=== PATIENT | female | born 1955 | race Caucasian/White ===

== ENCOUNTER 2016-12-22 17:18 | Observation (INO) | payer OTHER ==
[~2016-12-22] VITALS: Ht 154.9 cm; Wt 51.3 kg
[2016-12-22 17:21] VITALS: BP 173/97; PULSE 94; RESP 18; O2SAT 98
[2016-12-22 17:46] LABS: BASOPHILS % (AUTO) 0.5 % (0-3); EOSINOPHILS % (AUTO) 1.2 % (0-5); MONOCYTES % (AUTO) 9.4 % (4-12); Mean Corpuscular Hemoglobin 33.7 pg (27.0-35.0); Mean Corpuscular Volume 100.7 fL (81-100); NEUTROPHILS % (AUTO) 63.4 % (40-74); Platelet Count 347 bil/L (150-400)
--- NOTE | 2016-12-22 19:56 | ED.REPORT ---
HPI-General Illness Date of Service Dec 22, 2016 ED Provider: Jerzy Rivas MD A 61 year old female with a history of recent RLE DVT on Xeralto (15mg bid) presents to the ED with vaginal bleeding that initially began 3 weeks ago but became worse this afternoon. Patient went to the bathroom and noticed bright red blood dripping onto the paper. She also reports experiencing hematuria but the source of her bleeding is unknown. Recent associated symptoms also include diarrhea, hematochezia, hyperactive bowel sounds and tarry stool. Patient recently finished a full course of cefdinir for a positive strep test. She denies any recent vision changes, headaches, fever, chills, incontinence, changes in fluid intake/appetite or abdominal pain. Nursing Notes Stated Complaint: VAGINAL BLEEDING Chief Complaint: General Complaint Nursing Notes Reviewed: Yes Allergies: Coded Allergies: No Known Allergies (Unverified , 12/22/16) Miscellaneous Medications Albuterol HFA (Proair HFA) 8.5 Gm Hfa.aer.ad Cefdinir (Cefdinir) 300 Mg Capsule Celecoxib (Celecoxib) 200 Mg Capsule Citalopram (Citalopram) 10 Mg Tablet Duloxetine (Duloxetine) 30 Mg Capsule. Escitalopram Oxalate (Escitalopram Oxalate) 10 Mg Tablet Etonogestrel/Ethinyl Estradiol (Nuvaring Vaginal Ring) 1 Each Vag.ring Fluticasone Propionate (Fluticasone Propionate Nasal) 16 Gm [place].susp Lidocaine (Lidocaine) 700 Mg Adh..patch Methylprednisolone (MethylprednisoLONE Dose [place]) 4 Mg Tab.ds.pk Rivaroxaban (Xarelto) 15 Mg Tablet Rivaroxaban (Xarelto) 20 Mg Tablet Valacyclovir (Valacyclovir) 1,000 Mg Tablet General Time Seen by MD: 19:51 Chief Complaint Other (Hematuria) Hx Obtained From: Patient Arrived By: Walk-in Sudden in Onset?: No Onset Occurred: More than a week ago... (3 weeks) Symptom Duration: Since onset Associated with: Denies: Abdominal pain, Headache, Vision change Pertinent Negative: Pt denies other symptoms Recent Healthcare: Recent doctor visit, Recent hospitalization Past Medical History Past Medical History RLE DVT "Hyperactive airways" Past Surgical History Hernia repair Appendectomy Knee Arthroscopy Smoking History Never Smoker Social History Alcohol Use: "Social" Drug Use: Denies drug use Other Social History: Good social support, , Local resident Ambulatory Status Independent Review of Systems hyperactive bowel sounds Full Review of Systems Constitutional: Denies: Chills, Fever GI: Reports: Bloody/tarry stool, Diarrhea, Hematochezia, Denies: Abdominal pain Female: Reports: Hematuria, Denies: Incontinence, Vaginal bleeding - abnl Neurologic: Denies: Headache, Vision change Complete sys rev & neg: except as marked. Physical Exam Nursing note and vitals reviewed. Constitutional: Well-developed, well-nourished. Not diaphoretic. Head: Normocephalic and atraumatic. Mouth/Throat: Oropharynx is clear and moist. No oropharyngeal exudate. Eyes: EOM are normal. Pupils are equal, round, and reactive to light. Neck: Supple, no tracheal deviation. Cardiovascular: Normal rate, regular rhythm. Equal and intact distal pulses throughout. Pulmonary/Chest: Effort normal and breath sounds normal. No respiratory distress. Abdominal: Soft. No distension. There is no tenderness, rebound, or guarding. Bowel sounds present; hypermotility present. Pelvic: Large amount of blood in the vaginal vault. No obvious ureteral blood externally. Rectal: Occult heme negative. No external signs of trauma. Musculoskeletal: Range of motion grossly intact, moving all extremities. No edema or tenderness appreciated.Straight leg is negative. Neurological: AOx3. Grossly nonfocal exam. Strength and sensation intact and equal to bilateral upper and lower extremities. Skin: Warm and dry, no rashes or pallor appreciated. Psychiatric: Appropriate mood and affect. Behavior appears normal. Vital Signs Vital Signs Date Time Temp Pulse Resp B/P Pulse Ox O2 Delivery O2 Flow Rate FiO2 12/22/16 20:48 91 19 152/83 98 Room Air 12/22/16 17:21 36.0 94 18 173/97 98 Room Air Interpretation & Diagnostics Lab Results Interpretation Result Diagram: 12/23/16 0153 12/22/16 1738 Test 12/22/16 17:38 12/22/16 21:00 12/22/16 21:25 White Blood Count 8.0th/mm3 (3.8-10.1) Red Blood Count 4.01mil/mm3 (3.90-5.20) Mean Corpuscular Volume 100.7fL (81-100) Mean Corpuscular Hemoglobin 33.7pg (27.0-35.0) Mean Corpuscular Hemoglobin Concent 33.4% (32.0-37.0) Red Cell Distribution Width 12.9% (12.3-15.4) Platelet Count 347bil/L (150-400) Neutrophils (%) (Auto) 63.4% (40-74) Lymphocytes (%) (Auto) 25.4% (14-46) Monocytes (%) (Auto) 9.4% (4-12) Eosinophils (%) (Auto) 1.2% (0-5) Basophils (%) (Auto) 0.5% (0-3) Erythrocyte Sedimentation Rate 4mm/hr (0-40) Prothrombin Time 10.7sec (8.1-12.5) Prothromb Time International Ratio 1.00ratio Activated Partial Thromboplast Time 29.6sec (22.8-33.0) Sodium Level 137mEq/L (134-144) Potassium Level 3.8mEq/L (3.5-5.2) Chloride Level 104mEq/L (97-108) Carbon Dioxide Level 21mmol/L (18-29) Blood Urea Nitrogen 15mg/dL (6-24) Creatinine 0.73mg/dL (0.57-1.00) Estimat Glomerular Filtration Rate 117mL/min (>59) Glucose Level 159mg/dL (60-99) Lactic Acid Level 0.2mmol/L (0.4-2.0) Calcium Level 8.9mg/dL (8.5-10.1) Magnesium Level 1.9mg/dL (1.6-2.6) Total Bilirubin 0.2mg/dL (0.0-1.2) Aspartate Amino Transf (AST/SGOT) 17U/L (0-50) Alanine Aminotransferase (ALT/SGPT) 10U/L (0-32) Alkaline Phosphatase 40U/L (25-165) C-Reactive Protein 0.7mg/dL (0.0-0.5) Total Protein 6.2g/dL (6.4-8.4) Albumin 3.3g/dL (3.4-5.0) Lipase 44U/L (13-60) Urine Color Bloody (YELLOW) Urine Appearance Turbid (CLEAR,HAZY) Urine pH 5.0 (5.0-8.0) Urine Specific [place] 1.020 (1.003-1.035) Urine Protein Tracemg/dL (NEG,TRACE) Urine Glucose (UA) Negativemg/dL (NEGATIVE) Urine Ketones Tracemg/dL (NEGATIVE) Urine Occult Blood Large (NEGATIVE) Urine Nitrite Negative (NEGATIVE) Urine Bilirubin Negative (NEGATIVE) Urine Urobilinogen Normalmg/dL (NORMAL) Urine Leukocyte Esterase Negative (NEGATIVE) Urine RBC Packed/hpf (0-2) Urine WBC 0-5/hpf (0-5) Urine Epithelial Cells Few/hpf (NONE-MOD) Urine Crystals None seen (NONE SEEN) Urine Bacteria Few/hpf (NONE-FEW) Urine Hyaline Casts None/lpf (NONE) Urine Granular Casts None seen (NONE SEEN) Urine Waxy Casts None seen (NONE SEEN) Urine Red Blood Cell Casts None seen (NONE SEEN) Urine White Blood Cell Casts None seen (NONE SEEN) Urine Mucus None seen (None Seen) Urine Trichomonas None seen (NONE SEEN) Urine Yeast None (NONE SEEN) Urinalysis Comment None Urine Culture Reflexed Not indicated Hold Mason Top Tube Received (Received) Re-Eval/Medical Decision Med Decision/Clinical Course In summary, 61-year-old female presenting to the ED for evaluation of large volume vaginal bleeding in the context of recently starting Xarelto for a DVT. Differential is broad and includes GI bleed, endometrial cancer, polyp, etc. She is concerned as she had a hemoglobin today of 13.5 from 15.9 several days ago. CBC otherwise grossly within normal limits. She is having occasional lightheaded episodes, however hemodynamically stable here today. Pelvic exam does demonstrate a large-volume of blood in the vaginal vault; Hemoccult negative. Instructed to hold her evening Xarelto dose. Discussed with MRI SPECIALIST. Plan admission for serial H&H, moderate, ultrasound in the morning, as well as further evaluation and management of her DVT in the setting of active bleeding. Patient agreed with the plan as stated, no further questions. Time of Eval: 23:24 Re-Evaluation/Progress Note: Pt is informed pf pelvic and rectal exam results. Will consult with MRI SPECIALIST Time of Eval: 23:48 Re-Evaluation/Progress Note: Discussed consultation results with the patient. She is offerred admission at this time. Consultation #1: Referral / Consult Name: Ze Jackson MD Call Returned at: 23:47 Cable Strander: Will see patient, Agrees with eval, Agrees with plan Note: MRI SPECIALIST Consultation #2: Referral / Consult Name: Gerda Jara DO Consulted With: Hospitalist Call Returned at: 00:11 Cable Strander: Will see patient, Agrees with eval, Agrees with plan, Accepts admit Counseled Regarding: Diagnosis, Lab results, Need for admission Discharge & Departure Primary Impression: Vaginal bleeding Additional Impression: DVT (deep venous thrombosis) Disposition: ADMITTED TO HOSPITAL Discharge Condition All VS Reviewed: Yes Condition: Improved Referrals: Leslie Blanton MD (PCP) Leeanne Attestation Portions of this note were transcribed by Amparo Cain. I, Dr. Rivas personally performed the history, physical exam and medical decision-making; I reviewed and confirmed the accuracy of the information in the transcribed note. Signed by: Leeanne Baez, 12/22/16 7135. copies to: Leslie Blanton MD, William B MD Dec 22, 2016 19:56 AMPARO CAIN Dec 22, 2016 20:07
[2016-12-22 20:48] VITALS: BP 152/83; PULSE 91; RESP 19; O2SAT 98
[2016-12-22] MEDS ORDERED: 0.9% Sodium Chloride 1,000 ML IV ONE (20:51)
[2016-12-22 21:16] LABS: Magnesium 1.9 mg/dL (1.6-2.6)
[2016-12-22 21:17] LABS: APPEARANCE,URINE TURBID (CLEAR,HAZY); COLOR,URINE BLOODY (YELLOW); OCCULT BLOOD,URINE LARGE (NEGATIVE); UROBILINOGEN,URINE NORMAL (NORMAL)
[2016-12-23] MEDS ORDERED: Polyethylene Glycol (PEG) 17 Gm Powder PO PRN (01:10)
[2016-12-23] MEDS ORDERED: Ondansetron 2 mg/mL 2 mL Inj IVPUSH PRN (01:10)
[2016-12-23] MEDS ORDERED: Alum-Mag Hydrox-Simeth 30 mL Suspension PO PRN (01:10)
--- NOTE | 2016-12-23 01:28 | PCM.HPMED ---
Subjective Date of Service Dec 23, 2016 Primary Provider: Admitting Physician: Gerda Jara DO Primary Care Physician: Leslie Blanton MD Attending Physician: Gerda Jara DO Admit Status: From the Emergency Department Chief Complaint: Vaginal bleeding History of Present Illness: Lety is a 61 yo postmenopausal Female with h/o Recurrent RLE DVT currently on Xarelto and Asthma who presented to the ED for complaints of vaginal bleeding. She reports that she recently went on a family trip to [place] this past weekend, when she noted her RLE was more painful and mildly swollen. She states that it felt similar to a DVT she had in the same spot 5 years ago, so she went to the ED for evaluation. She was found to have a recurrent DVT and was placed on Xarelto, which she reports taking regularly since. She states that she had approximately a 7 hour flight to [place] due to various delays and she was also using the Nuvaring for contraception, but with her recurrent DVT, they placed her on Xarelto and recommended she follow up with a museum attendant. She reports that since being home from that trip on Sunday, she has not noticed any CP, SOB, QUIJANO, vision changes, or swelling of any other extremities. She however, did note blood on her toilet paper as she was wiping today. She did have some mild bleeding 3 weeks ago, which resolved, but with her now being on Xarelto, she decided to go in for further evaluation. In the ED, she was afebrile, but somewhat hypertensive, which she attributes to being nervous. Her CBC and CMP were benign, but it was noted that her Hgb dropped from 15.9 to 13.5 over the past 4 days when comparing her labwork from [place]. A vaginal exam was performed, which showed a large amount of blood pooled in the posterior aspect. She was subsequently told to stop her Xarelto and will be admitted to evaluate to monitor her bleeding. 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 She states that she takes Albuterol and Dulera whenever she has a flare up. She also was recently treated with Cefdinir for a positive strep infection 2 weeks ago. She also has had a chronic diarrhea in the past 3 months, which she just sent stool sample to the lab for analysis. She states she has been having small loose watery BMs up to 10x a day for the past 3 months and has noted that the stool has become more dark and tarry in the past week. She has not noted any BRBPR, and a guaiac test was negative x1 in this ED. She denies any abdominal pain, and she is postmenopausal. She also reports 4 miscarriages in the past and has not had any workup as to why. 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 As far as she knows, there are no clotting or bleeding disorders in the family. Her original DVT episode in 2011 was blamed on a long airplane flight and also using replacement hormone therapy. She has since been on Nuvaring only for contraception. She has had a single partner for the past few years and has no concerns for STIs. Review of Systems: Comprehensive review of systems was conducted with the patient and found to be negative except as noted above in HPI. Allergies Coded Allergies: No Known Allergies (Unverified , 12/22/16) Home Medications From external med history: Xarelto 15 mg twice a day Cefdinir twice a day Valtrex 1 g daily Citalopram 10 mg daily Nuvaring Lidocaine patch Celecoxib 200 mg Duloxetine 30 mg daily Proventil HFA Flonase Patient reports also being on Dulera PMH Asthma and reactive airway disease Depression and anxiety Right leg DVT in 2012 Recurrent right leg DVT in 2017 Patient reports some type of immunodeficiency although she does not remember which immunoglobulin it is Allergies GERD Recent high risk HPV positive Pap smear with subsequent colposcopy genital Herpes Simplex Surgical History Femoral and umbilical hernia repair 3 sections Left knee arthroscopy Colposcopy Appendectomy Family History Family history of lung cancer Social History Occupation: former RN Hx Alcohol Use: Yes (wine occasionally) Hx Substance Use: No Hx Tobacco Use: No (but has heavy secondhand exposure from family) Living Arrangement: with Family Exam Vital Signs Vital Sign - Last Date Time Temp Pulse Resp B/P Pulse Ox O2 Delivery O2 Flow Rate FiO2 12/22/16 20:48 91 19 152/83 98 Room Air 12/22/16 17:21 36.0 Exam General: well-developed, well-nourished female who appears in no acute distress HEENT: Normocephalic, atraumatic. External ears without defect. PERRLA, EOMI. Anicteric sclerae, moist conjunctivae, and no lid lag. Oropharynx moist and pink Neck: Supple with full range of motion. No jugular venous distension. No bruits. No lymphadenopathy or thyromegaly. Cardiovascular: Regular rate and rhythm with soft systolic murmur and S3 noted Pulmonary: Clear to auscultation bilaterally with no crackles, wheezes, or rhonchi. Normal respiratory effort with no use of accessory muscles. Abdomen: Bowel tones present. Soft, nontender, nondistended. No hepatosplenomegaly or masses appreciated. Extremities: No clubbing, cyanosis, edema, or lymphadenopathy appreciated. Skin: Normal temperature, turgor, and texture; no rash, ulcers, or subcutaneous nodules appreciated. Neurological: Cranial nerves grossly intact. Normal muscle strength, tone, and bulk. Reflexes, coordination, and sensory function within normal limits. Psychiatric: Appears mildly anxious. Alert and oriented to person, place, and time. Cooperative and pleasant Lab and Diagnostics Result Diagram: 12/22/16 17312/22/16 173 Assessment & Plan Lety is a 61 yo postmenopausal Female with h/o Recurrent RLE DVT currently on Xarelto and Asthma who presented to the ED for complaints of vaginal bleeding. Admitted for evaluation of her vaginal bleeding and evaluation of her recurrent DVTs. Acute Vaginal bleeding, POA Possibly due to abnormal uterine bleeding, but also concerns of malignancy. She has not had any vaginal bleeding since being postmenopausal until now. octave board assembler to be consulted in the AM. Will order Pelvic/TV U/S for further evaluation Will monitor H&H closely due to her drop in H&H since her labs on Sunday, although she is still in the normal range. Type and held. Recurrent DVT, POA Patient's history of miscarriages with recurrent DVTs is suspicious of Antiphospholipid syndrome. Patient denies any fmhx of clotting/bleeding disorders. If her H&H is stable, we will resume her Xarelto immediately and continue to monitor her H&H. Consider museum attendant consultation in the AM Macrocytosis, POA Without anemia. MCV of 100.7 on admission. Patient denies any heavy alcohol use. Will check B12 and Folate Asthma, POA Currently stable. Will continue her home inhalers prn. Her Pulmonary problems and her reports of immunoglobulin deficiency should be elucidated. It may be related to her recurrent DVTs also. She does have gross hematuria on her UA. Consider a cathed specimen to evaluate for true hematuria and possibly nephropathy. Elevated blood pressure, POA Pt reports that she has white coat hypertension. She measures her BP at home frequently and they are generally in the 120 systolic. We will continue to monitor and treat as necessary Elevated blood glucose, POA No history of diabetes, will check an A1c Heart Murmur, POA Soft systolic murmur, which she reports has been present before There appears to be a third heart sound also, which is new to her. Continue monitoring and consider Echocardiogram. No anginal symptoms currently. Anxiety and depression, POA Patient appears mildly anxious on examination. We will continue her home medications: Citalopram and Duloxetine Tylenol as needed for fever/pain Zofran as needed for nausea Bowel regimen as needed for constipation CODE STATUS: Full resuscitation Patient is admitted under inpatient status with expected length of stay greater than 2 midnights due to severity of presenting symptoms, risk of adverse event, and complexity of treatment plan. Pain Evaluation: Adequate Pain Control VTE Prophylaxis: Other (holding prophylaxis until bleeding is evaluated) Resuscitation Status: CPR: Attempt Resuscitation Attending Statement The patient was seen and examined together with house staff on 12/23/2016 and I agree with the history, exam and plan as outlined in the note above. Damon Ko DO Dec 23, 2016 01:27 Gerda Jara DO Dec 23, 2016 04:42
[2016-12-23 01:58] VITALS: BP 150/83; PULSE 75; RESP 18; O2SAT 97
[2016-12-23] MEDS ORDERED: DULO30CA50 (03:20)
[2016-12-23] MEDS ORDERED: FLUT16SP (03:20)
[2016-12-23] MEDS ORDERED: CEFD300C3 (03:20)
[2016-12-23] MEDS ORDERED: LIDO700A33 (03:20)
[2016-12-23] MEDS ORDERED: VALA100026 (03:20)
[2016-12-23] MEDS ORDERED: CITA10TA9 (03:20)
[2016-12-23] MEDS ORDERED: RIVA15TA (03:20)
[2016-12-23] MEDS ORDERED: METH4TAB11 (03:20)
[2016-12-23] MEDS ORDERED: ESCI10TA52 (03:20)
[2016-12-23] MEDS ORDERED: ALBU8.5H2 (03:20)
[2016-12-23] MEDS ORDERED: ETON1VAG (03:20)
[2016-12-23] MEDS ORDERED: CELE-67 (03:20)
[2016-12-23] MEDS ORDERED: RIVA20TA (03:20)
[2016-12-23 05:30] VITALS: BP 127/81; PULSE 85; RESP 16; O2SAT 97
[2016-12-23 06:16] VITALS: PULSE 82
[2016-12-23 06:16] LABS: BASOPHILS % (AUTO) 0.9 % (0-3); EOSINOPHILS % (AUTO) 2.5 % (0-5); MONOCYTES % (AUTO) 11.1 % (4-12); Mean Corpuscular Hemoglobin 34.3 pg (27.0-35.0); Mean Corpuscular Volume 101.6 fL (81-100); NEUTROPHILS % (AUTO) 59.1 % (40-74); Platelet Count 333 bil/L (150-400)
--- NOTE | 2016-12-23 06:25 | NUR ---
Admit Admitted to 3011 from ED via stretcher. Able to ambulate on arrival with strong steady gait and no noted issues with activity. Tele SR w/o c/o CP or discomfort. RA w/o SOB but does report recent upper respiratory tract infection for which she states is resolving. Tolerating PO intake w/o n/v but reports three weeks of diarrhea which she also states has started to resolve over last two days. No excessive bleeding currently noted. Denies pain or discomfort. Personal belongings at bedside per patient request. Oriented to call light use with return demonstration.
[2016-12-23] MEDS ORDERED: Albuterol 2.5 mg/3 mL Inhalation Solution NEB PRN (07:00)
[2016-12-23] MEDS ORDERED: DULoxetine 30 mg DR Capsule PO SCH (08:30)
[2016-12-23 08:40] VITALS: PULSE 86
--- NOTE | 2016-12-23 11:38 | DRSVH ---
PROCEDURE: US PELVIC SONOGRAM + TRANSVAGINAL SONOGRAM INDICATIONS: vag bleeding TECHNIQUE: Real-time scanning was performed of the pelvic organs, with image documentation. Additional endovagi nal scanning was necessary due to incomplete visualization of the adnexal and endometrial structures by transabdominal scanning. COMPARISON: None. FINDINGS: (orthogonal measurements) Uterus size: 5.62 cm, 3.73 cm, 3.58 cm Endometrium thickness: 7.40 mm Right ovary size: 1.49 cm Left ovary size: 1.68 cm Transabdominal scanning: Limited scanning through the kidneys shows no hydronephrosis. There is mode rate amount of pelvic fluid with internal echoes within the cul-de-sac suggesting hematoma. Endovaginal scanning: Uterus: Uterus is normal in size and appearance. Endometrium is mildly thickened for a postmenopaus al woman. Ovaries: Within normal physiologic limits. IMPRESSION: 1. Mild thickening of the endometrium. In a postmenopausal woman, this finding is abnormal. Endometri al sampling may be indicated. 2. A moderate amount of complex free fluid in the cul-de-sac, suspicious for blood. Dictated by: Jaleesa Haywood M.D. on 12/23/2016 at 11:31 Approved by: Jaleesa Hawyood M.D. on 12/23/2016 at 11:36
[2016-12-23 14:03] VITALS: BP 160/84; PULSE 79; RESP 16; O2SAT 98
[2016-12-23] MEDS ORDERED: fentaNYL-PF 50 mCg/mL 2 mL Inj IVPUSH PRN (14:05)
--- NOTE | 2016-12-23 18:25 | PCM.DC.MED ---
Discharge Summary Date of Service Dec 23, 2016 Dates of Hospitalization Date of Hospital Admission Dec 23, 2016 at 00:37 Date of Discharge: Dec 23, 2016 Providers: Admitting Physician: Gerda Jara DO Primary Care Physician: Leslie Blanton MD Attending Physician: Cal Heath DO Diagnosis at Time of Discharge Diagnosis at Time of Discharge #Acute uterine bleeding likely related to multiple factors including withdrawal for hormonal therapy and recent induction on anticoagulation therapy. Consultations OBGYN: Dr Jackson Brief History As per admission HPI by Dr Ko, " Lety is a 61 yo postmenopausal Female with h/o Recurrent RLE DVT currently on Xarelto and Asthma who presented to the ED for complaints of vaginal bleeding. She reports that she recently went on a family trip to [place] this past weekend, when she noted her RLE was more painful and mildly swollen. She states that it felt similar to a DVT she had in the same spot 5 years ago, so she went to the ED for evaluation. She was found to have a recurrent DVT and was placed on Xarelto, which she reports taking regularly since. She states that she had approximately a 7 hour flight to [place] due to various delays and she was also using the Nuvaring for contraception, but with her recurrent DVT, they placed her on Xarelto and recommended she follow up with a roller coaster designer. She reports that since being home from that trip on Sunday, she has not noticed any CP, SOB, QUIJANO, vision changes, or swelling of any other extremities. She however, did note blood on her toilet paper as she was wiping today. She did have some mild bleeding 3 weeks ago, which resolved, but with her now being on Xarelto, she decided to go in for further evaluation. In the ED, she was afebrile, but somewhat hypertensive, which she attributes to being nervous. Her CBC and CMP were benign, but it was noted that her Hgb dropped from 15.9 to 13.5 over the past 4 days when comparing her labwork from [place]. A vaginal exam was performed, which showed a large amount of blood pooled in the posterior aspect. She was subsequently told to stop her Xarelto and will be admitted to evaluate to monitor her bleeding. 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 She states that she takes Albuterol and Dulera whenever she has a flare up. She also was recently treated with Cefdinir for a positive strep infection 2 weeks ago. She also has had a chronic diarrhea in the past 3 months, which she just sent stool sample to the lab for analysis. She states she has been having small loose watery BMs up to 10x a day for the past 3 months and has noted that the stool has become more dark and tarry in the past week. She has not noted any BRBPR, and a guaiac test was negative x1 in this ED. She denies any abdominal pain, and she is postmenopausal. She also reports 4 miscarriages in the past and has not had any workup as to why. 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 As far as she knows, there are no clotting or bleeding disorders in the family. Her original DVT episode in 2011 was blamed on a long airplane flight and also using replacement hormone therapy. She has since been on Nuvaring only for contraception. She has had a single partner for the past few years and has no concerns for STIs." Hospital Course Acute Vaginal bleeding, POA - This case was discussed extensively with both hematology oncology's Dr.Kiarash Henao, in addition to consulted RAIL SIGNAL MECHANIC, Dr Jackson. It was felt patient's acute bleed most likely the result of multiple factors including recent induction on anticoagulation therapy with Xarelto, in addition to withdrawal bleeding from hormonal contraception through patient's NuvaRing. It was additionally pertinent that NuvaRing is an estrogen-containing contraceptive and may have increased patient's chance for recurrent thromboembolus , specifically her recent DVT. Endometrial biopsy was conducted during his hospitalization in response to endometrial thickening observed on pelvic ultrasound. Results are still pending and Dr. Jackson plans to follow-up with patient in office in near future. Bleeding has subsided however and as such Dr. Jackson felt from a gynecologic standpoint she would be stable for discharge home. Truly her hemoglobin and hematocrit was stable throughout hospitalization. Further Dr. Henao did not feel DVT to be an acute issue warranting continued anticoagulation therapy, so patient was discharged without need for continued anticoagulation which may predispose her to recurrent bleeding. See below for further details. Recurrent DVT, POA - Given size and location of DVT , Dr Henao felt this may not intrude represent an acute thromboembolic process but may have been exacerbation of pain from underlying deformity related to previous DVT from 2011 . Furthermore given the location below popliteal region , he felt risk was low enough that it was reasonable to discontinue all anticoagulation at this time . Records release from [facility] where DVT was diagnosed was still pending at time of discharge but will hopefully be available for review during patient's follow- up with Dr. Henao , in office which she requested in the next couple of weeks following discharge . As such patient was discharged home with only continue compression recommended no further anticoagulation therapy prescribed at this time . Additional evaluation for possible underlying hypercoagulable state will be considered at that time. No further studies were ordered during patient 's hospitalization. Macrocytosis, POA Without anemia. MCV of 100.7 on admission. Patient denies any heavy alcohol use. Will check B12 and Folate, still pending at time of discharge. Heart Murmur, POA Soft systolic murmur, which she reports has been present before No acute interventions considered may consider echocardiogram in outpatient setting. Exam Vital Signs (Last) Date Time Temp Pulse Resp B/P Pulse Ox O2 Delivery O2 Flow Rate FiO2 12/23/16 14:03 36.8 79 16 160/84 98 Room Air Exam Patient in no acute distress Breathing comfortably Compression stocking in place over right lower extremity Heart rate is a regular rate and rhythm, splitting pattern versus S3 sound auscultated only mild intensity. Lungs are clear to auscultation bilaterally Test 12/22/16 17:38 12/22/16 21:00 12/22/16 21:25 12/23/16 05:25 Erythrocyte Sedimentation Rate 4mm/hr (0-40) Prothrombin Time 10.7sec (8.1-12.5) Prothromb Time International Ratio 1.00ratio Activated Partial Thromboplast Time 29.6sec (22.8-33.0) Lactic Acid Level 0.2mmol/L (0.4-2.0) Magnesium Level 1.9mg/dL (1.6-2.6) Total Bilirubin 0.2mg/dL (0.0-1.2) Aspartate Amino Transf (AST/SGOT) 17U/L (0-50) Alanine Aminotransferase (ALT/SGPT) 10U/L (0-32) Alkaline Phosphatase 40U/L (25-165) C-Reactive Protein 0.7mg/dL (0.0-0.5) Total Protein 6.2g/dL (6.4-8.4) Albumin 3.3g/dL (3.4-5.0) Lipase 44U/L (13-60) Urine Color Bloody (YELLOW) Urine Appearance Turbid (CLEAR,HAZY) Urine pH 5.0 (5.0-8.0) Urine Specific [place] 1.020 (1.003-1.035) Urine Protein Tracemg/dL (NEG,TRACE) Urine Glucose (UA) Negativemg/dL (NEGATIVE) Urine Ketones Tracemg/dL (NEGATIVE) Urine Occult Blood Large (NEGATIVE) Urine Nitrite Negative (NEGATIVE) Urine Bilirubin Negative (NEGATIVE) Urine Urobilinogen Normalmg/dL (NORMAL) Urine Leukocyte Esterase Negative (NEGATIVE) Urine RBC Packed/hpf (0-2) Urine WBC 0-5/hpf (0-5) Urine Epithelial Cells Few/hpf (NONE-MOD) Urine Crystals None seen (NONE SEEN) Urine Bacteria Few/hpf (NONE-FEW) Urine Hyaline Casts None/lpf (NONE) Urine Granular Casts None seen (NONE SEEN) Urine Waxy Casts None seen (NONE SEEN) Urine Red Blood Cell Casts None seen (NONE SEEN) Urine White Blood Cell Casts None seen (NONE SEEN) Urine Mucus None seen (None Seen) Urine Trichomonas None seen (NONE SEEN) Urine Yeast None (NONE SEEN) Urinalysis Comment None Urine Culture Reflexed Not indicated Hold Mason Top Tube Received (Received) White Blood Count 6.4th/mm3 (3.8-10.1) Red Blood Count 3.85mil/mm3 (3.90-5.20) Hemoglobin 13.2g/dL (12.0-15.6) Hematocrit 39.1% (35.0-46.0) Mean Corpuscular Volume 101.6fL (81-100) Mean Corpuscular Hemoglobin 34.3pg (27.0-35.0) Mean Corpuscular Hemoglobin Concent 33.8% (32.0-37.0) Red Cell Distribution Width 12.8% (12.3-15.4) Platelet Count 333bil/L (150-400) Neutrophils (%) (Auto) 59.1% (40-74) Lymphocytes (%) (Auto) 26.2% (14-46) Monocytes (%) (Auto) 11.1% (4-12) Eosinophils (%) (Auto) 2.5% (0-5) Basophils (%) (Auto) 0.9% (0-3) Sodium Level 142mEq/L (134-144) Potassium Level 4.0mEq/L (3.5-5.2) Chloride Level 107mEq/L (97-108) Carbon Dioxide Level 23mmol/L (18-29) Blood Urea Nitrogen 10mg/dL (6-24) Creatinine 0.68mg/dL (0.57-1.00) Estimat Glomerular Filtration Rate 127mL/min (>59) Glucose Level 103mg/dL (60-99) Calcium Level 8.5mg/dL (8.5-10.1) Thyroid Stimulating Hormone (TSH) 1.560uIU/mL (0.450-4.500) Discharge Medications Miscellaneous Medications Albuterol HFA (Proair HFA) 8.5 Gm Hfa.aer.ad (Reported) Cefdinir (Cefdinir) 300 Mg Capsule (Reported) Celecoxib (Celecoxib) 200 Mg Capsule (Reported) Citalopram (Citalopram) 10 Mg Tablet (Reported) Duloxetine (Duloxetine) 30 Mg Capsule.dr (Reported) Escitalopram Oxalate (Escitalopram Oxalate) 10 Mg Tablet (Reported) Etonogestrel/Ethinyl Estradiol (Nuvaring Vaginal Ring) 1 Each Vag.ring (Reported ) Fluticasone Propionate (Fluticasone Propionate Nasal) 16 Gm [place].susp (Reported ) Lidocaine (Lidocaine) 700 Mg Adh..patch (Reported) Methylprednisolone (MethylprednisoLONE Dose [place]) 4 Mg Tab.ds.pk (Reported) Rivaroxaban (Xarelto) 15 Mg Tablet (Reported) Rivaroxaban (Xarelto) 20 Mg Tablet (Reported) Valacyclovir (Valacyclovir) 1,000 Mg Tablet (Reported) Followup Plan Disposition: Home Follow-up plan - You should follow-up with her primary care doctor within 1 week to update him on recent hospitalization and events. Should pain in the location of previous DVT recur it is reasonable to contact primary care physician's office for further advice. Should pain extend up to or beyond the back of knee however, you should seek emergency medical evaluation. Additionally should acute pain or swelling develop in other extremity, emergency evaluation should be sought as well. - Follow-up advised in next 1-2 weeks with RAIL SIGNAL MECHANIC Dr Ze Jackson to review results of endometrial biopsy and further consider cause of bleeding. - Additionally should schedule follow-up in the next couple of weeks with oncologist- roller coaster designer Dr Henao, to consider further evaluation and management of recent DVT.. Discharge Diet: No restrictions Discharge Activity: No restrictions Follow-up Provider: Michael Echevarria MD Follow-up with PCP in: 1 week Time spent 45 minutes copies to: Ze Jackson MD; Michael Echevarria MD; Yesica Henao MD, Benjamin P DO Dec 23, 2016 18:25
--- NOTE | 2016-12-23 18:32 | PCM.DIMED ---
Discharge Instructions Date of Service Dec 23, 2016 Dates of Hospitalization Dec 23, 2016 at 00:37 Discharge Diagnosis Discharge Diagnosis #Acute uterine bleeding likely related to multiple factors including withdrawal for hormonal therapy and recent induction on anticoagulation therapy. Diet Discharge Diet: No restrictions Activity Discharge Activity: No restrictions Patient Instructions Patient Instructions See below Follow-up plan - You should follow-up with her primary care doctor within 1 week to update him on recent hospitalization and events. Should pain in the location of previous DVT recur it is reasonable to contact primary care physician's office for further advice. Should pain extend up to or beyond the back of knee however, you should seek emergency medical evaluation. Additionally should acute pain or swelling develop in other extremity, emergency evaluation should be sought as well. - Follow-up advised in next 1-[address] [employer] [address] Ze Jackson to review results of endometrial biopsy and further consider cause of bleeding. - Additionally should schedule follow-up in the next couple of weeks with oncologist- survey and mapping technician Dr Henao, to consider further evaluation and management of recent DVT.. Follow-up Provider: Michael Echevarria MD Follow-up with PCP in: 1 week Cal Heath DO Dec 23, 2016 18:31
--- NOTE | 2016-12-23 19:27 | NUR ---
Pelvic Exam @ [facility] Dr. Edmonds called to have patient at the [facility] @ 1200 for pelvic exam & uterine biopsy. Primary RN walked patient to [facility], procedure took 1-1.5hrs, patient brought back by staff.
--- NOTE | 2016-12-23 19:46 | NUR ---
Discharge reviewed discharge instructions regarding medications and follow up appointments with pt and at bedside. reviewed when to seek medical attention for worsening pain/bleeding. pt denied having any questions at that time. IV D/C'd intact. all personal belonings left with pt. pt took discharge instructions home. pt and left [facility] around 19:35 via wheelchair to personal vehicle to home.
--- NOTE | 2016-12-25 08:14 | CONS ---
[address] [address] CONSULTATION REPORT PATIENT: NARGIS FUENTES : 1955 MR#: [id number] ADMIT: 12/23/2016 JOB ID: [id number] DATE OF SERVICE: 12/23/2016 GYNECOLOGIC CONSULTATION: HISTORY OF PRESENT ILLNESS: The patient is a 61-year-old, AB4 woman who lives in [facility]. She is a nurse, with variable nurse experience, most recently as a school nurse, in the past working in intensive care unit, etc. She carries a interesting history of past right lower extremity blood clot (calf) in 2011 while using bioidentical hormones for menopausal syndrome management. She used anticoagulant therapy for some months and ultimately went off and did well until recently. However, she has had some vaginal atrophy and initiated some Estrace vaginal cream use briefly in 2015, and then again Estring, before choosing instead to use NuvaRing as prescribed per her internal medicine physician beginning about six weeks ago, using five weeks continuously until about a week prior to admission. She did not have any bleeding during its use. About 5 or 6 days ago, while in [place], a few days after stopping the NuvaRing being diagnosed with recurrent right lower extremity (calf) blood clot and was started on Xarelto. Then a few days later, i.e. on December 22, 2016, she began bleeding moderately heavy, and this about a week after stopping the NuvaRing as previously described. She came into the emergency department and was noted to have hemoglobin greater than 13, although she was concerned about the amount of bleeding and the emergency department called the internal medicine hospitalist and the patient was admitted for observation. Xarelto dosing was held last evening, as well as this morning, thus now at greater than 24 hours since last dose yesterday morning. I was asked to accomplish PLUCK SEPARATOR consultation in the setting of the postmenopausal uterine bleeding that has developed in the setting of recent five week course of continuous NuvaRing and then with anticoagulant initiation. The concern is whether significant bleeding will continue, and if there is an underlying pathologic etiology to account for the bleeding that may have been uncovered by anticoagulant administration. Note that overnight bleeding became very minimal and hemoglobin is once again greater than 13, demonstrating stability. PHYSICAL EXAMINATION: Pelvic examination: Vulva, vagina, and cervix: No obvious epithelial abnormality. There is a scant (drop or two) of mucousy blood in her vaginal vault. Bimanual examination demonstrated no obvious mass or tenderness, exam limited. There is some moderate atrophy that limits exam as well, although two fingerbreadths passed through the introitus. Pap test is taken, ThinPrep. PROCEDURE: Endometrial biopsy was performed in sterile fashion, as follows: I discussed with the patient the postmenopausal bleeding that may well be due to simply NuvaRing buildup in preparation of endometrium and then with anticoagulant administration resulting in benign bleeding. However, cannot rule out endometrial hyperplasia or malignancy, although not suspected. With endometrial thickness at 7+ mm by sonogram (see below), it has been felt prudent to try to obtain endometrial sample to rule out hyperplasia or malignancy, if feasible. It would like to avoid surgery in this patient who may well be placed back on anticoagulant therapy and the patient very much wants to avoid surgery and is willing to undergo the discomfort of the endometrial biopsy, understanding reasons for it. She has understood that endometrial biopsy can be associated with bleeding, infection, cervical or uterine wall perforation, and pain. She was agreeable to proceeding with the procedure, which was thoroughly discussed the patient, with nursing staff in the room before its performance. Betadine solution was placed on the cervix and tenaculum was placed on the anterior cervical lip and another on the posterior cervical lip. A 4 mm endometrial biopsy instrument was then passed into the cervix, yet would not pass through the internal cervical os, suspect stenosis perhaps related to menopause, atrophy, etc. (Note that she has not had a vaginal , either.) Then dilators were utilized, first a 2 mm, then a 3 mm, and discomfort was significant, although the patient was doing very well. We simply stopped the procedure before further dilatation and provided fentanyl 100 mcg intravenously at her request. This definitely further helped the discomfort and the internal cervical os was dilated up to 4-5 mm and 4 mm biopsy instrument was then advanced into the uterine cavity up to about 6.5-7 cm. Attempts at obtaining a sample was then made in the usual fashion, although only scant mucousy bloody tissue was obtained. Could not determine whether this was an adequate sample, yet we did what could be accomplished and then discontinued the procedure. Note that the patient tolerated it well, there was only scant bleeding, and we will have to see if the sample was adequate, with the patient understanding that it is adequate the majority of the time although not 100% of the time. She realizes that, depending on findings per pathologist, how she bleeds from here, and how future ultrasounds look as far as endometrial thickness and so forth, then determination will be made as to whether any additional endometrial assessment procedures are needed. Each tenaculum was removed from the cervix and no bleeding occurred. The patient was observed for about 5 minutes and no bleeding occurred. Abdomen was soft, and pain definitely became minimal. DIAGNOSTIC DATA: Hemoglobin clearly on three readings has remained above 13, this morning slightly higher than the last one during the night. See other laboratory reports. Pelvic ultrasound: This was accomplished this morning formally. Uterus was small, of normal size, and ovaries were normal. Note that endometrial thickness was defined by two measurements, one at 7.4 mm, one at 5.2 mm. There was no obvious heterogeneity to specifically suggest an endometrial polyp or mass lesion. Note that whereas thickness may be a little greater than typically noted in a menopausal woman, recall that she has been on the NuvaRing for about five continuous weeks, about a week prior to her admission, and this certainly likely thickened the endometrium. Other finding was that of cloudy free fluid in the cul-de-sac region, suspected bloody fluid, measuring 3.3 x 1.8 cm pocket, thus not large, yet present, and certainly could be consistent with the fact that uterine bleeding began moderately yesterday with potential for retrograde blood flow through the fallopian tube into the pelvis. IMPRESSION: 1. Postmenopausal bleeding. Suspect of benign origin. Likely due to a combination of recent NuvaRing use with endometrial buildup accounting for slightly thickened endometrium in a postmenopausal patient plus then anticoagulant therapy initiation. To rule out but doubt endometrial hyperplasia or malignancy or polyp or nonvisualized fibroid. 2. Mildly increased endometrial thickness per one sonographic assessment. Suspect related to recent NuvaRing use as opposed to endometrial hyperplasia or malignancy. 3. Cul-de-sac free fluid, with hemorrhagic element likely, small pocket, suspect due to retrograde blood flow from the uterus through the fallopian tubes with onset of moderate uterine bleeding yesterday. 4. Deep venous thrombosis right lower extremity/calf, recurrent. Using Xarelto this week as initiated in [place], now off of Xarelto since yesterday morning as uterine bleeding has been observed, with deep venous thrombosis managed per internal medicine hospitalist. Note that there were predisposing historical and other factors that may have had increased risk of recurrent deep venous thrombosis, i.e. history of deep venous thrombosis in 2012, long plane trip (7 hours) recently, and recent NuvaRing use. Prior DVT in 2011, right lower extremity/calf, also treated with anticoagulant therapy. 5. Menopausal syndrome, occurring at age 55-58, having bioidentical hormonal therapy for a couple of years, then a break before Estrace cream use for a couple of months in 2016, and then Estrace cream again briefly in the spring, before NuvaRing initiation for approximately five weeks steady, ending about a week prior to admission with uterine bleeding currently. 6. Vulvovaginal atrophy. See prior number for hormonal utilization during the past several years. 7. Reproductive history: x3, first trimester miscarriage x4. 8. History of hemorrhagic ovarian cyst reportedly. Ultrasound last spring reportedly negative and ultrasound today negative regarding ovaries. 9. Distant history of abnormal Pap, then normalization without treatment. 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 Reportedly identified only high-risk HPV and she was told to have Pap followup in a year. 10. Hematuria suggested on urinalysis on admission, although this may have well been related to uterine/vaginal bleeding, contamination of the urine. 11. Macrocytosis without anemia. Will check a vitamin B12 and folate. 12. Asthma, using Proventil HFA. Reported reactive airway disease. Note also Dulera use when needed. 13. Environmental allergies, using Flonase. 14. Depression and anxiety. Using citalopram and duloxetine. 15. Some type of immunodeficiency, although patient does not recall which immunoglobulin has been identified. 16. Gastroesophageal reflux disease. 17. Genital herpes history, using Valtrex 1g daily. 18. Chronic diarrhea reported, undergoing evaluation. 19. Recent Strep infection for which she used antibiotics. 20. Lidocaine patch and celecoxib use. 21. SURGICAL HISTORY: a. Reflux history --See prior consultation note. b. Appendectomy. 22. Umbilical and femoral hernia repair. 23. Left knee arthroscopy. 24. Heavy secondhand smoke exposure from family. 25. No known drug allergies. 26. Family history of lung cancer. RECOMMENDATIONS: 1. Extensive Telephone Exchange Operator consultation (greater than two hours spent with patient through history and physical and procedures and multiple discussions). 2. Pap tests. 3. Endometrial biopsy. 4. Lengthy discussions with patient and significant other regarding the recent uterine bleeding that likely stems from combination of NuvaRing use with endometrial thickening/prep plus then onset of anticoagulant therapy. Doubt endometrial hyperplasia or malignancy or polyp or fibroid, or other significant pathology. We will follow up endometrial biopsy and determine if any additional sampling is needed or other evaluative or therapeutic efforts, although I do not suspect that heavy bleeding will recur. Patient promises to stay in touch and to follow up with me in the office, to call Sunday for appointment. Note, that it is my suspicion then that endometrium will thin down over time now the patient has bled and that she is no longer on the NuvaRing, and that hemorrhagic fluid in the cul-de-sac area will also absorb over time. I have encouraged her to consider not using hormonal therapy from this point forward in light of prior DVT, as this could be a potential contributing factor to DVT risk. I will otherwise defer DVT management to auditor internal and Hematology, and I have spoken thoroughly with hospitalist as well today in regard to our assessment and plans. He has indicated that the patient may not be sent home on full anticoagulation and there may be a consideration for anticoagulant therapy that could more easily be countered and/or reversed, and this will be negotiated with the patient. It is our hope that the patient will be able to thus go home soon, and not require any additional office or surgical procedures for endometrial or other assessment or treatment, time will tell. Once again, the patient and her significant other have understood that endometrial biopsy is not always successful at obtaining endometrial tissue but we will follow pathology report and further discuss this in the office as well as determine when next ultrasound assessment of endometrium as well as cul-de-sac fluid are needed, etc. Ze Jackson MD [facility]
--- NOTE | 2016-12-29 18:57 | PATH ---
SURGICAL PATHOLOGY Attending Physician:Ze Jackson M.D CASE STATUS: Signed Out PATIENT NAME: NARGIS FUENTES PID: [id number] : 1955 DATE COLLECTED:12/23/2016 00:00 SPECIMEN: Endometrium, Biopsy CLINICAL HISTORY: POST-MENOPAUSAL BLEEDING 1). ENDOMETRIAL BIOPSY FINAL DIAGNOSIS: 1.DESIGNATED "ENDOMETRIUM", BIOPSY: SCANT ENDOCERVICAL CELLS IN A BACKGROUND OF BLOOD AND INFLAMMATORY DEBRIS, SEE COMMENT. No evidence of neoplasia or hyperplasia. [id number] NOTE: Scant material showing predominately inflammatory debris and blood is present, including a 2 mm aggregate of histiocytes and neutrophils. Scant endocervical cells are present. There is no evidence of dysplasia, neoplasia, or malignancy. GROSS DESCRIPTION: The specimen is received in one formalin filled container labeled with the patient's name, sublabeled "endometrial" and consists of a less than 0.25 cc aggregate of mucoid material and blood which is entirely submitted in one cassette. 12/25/2016DC MICRO DESCRIPTION: Immunohistochemical stains were performed to characterize cells of interest. Results: CD68:Positive CD31:Positive, membranous reactivity CD10:Negative ER:Negative Cytokeratin MAIRA: Negative Interpretation: The immunophenotype is consistent with histiocytes/macrophages which can occasionally show membranous reactivity by CD31 stain. The absence of MAIRA, CD31, and ER mitigates against the interpretation of endometrial cells. This test was developed and its performance characteristics determined by [facility]. It has not been cleared or approved by the U. S. Food and Drug Administration. The FDA has determined that such clearance or approval is not necessary. This test is used for clinical purposes. It should not be regarded as investigational or for research. ICD-9 CODES: CPT CODES: 1: 88166, 45130, 09110, 98003, 11931, 25691 Electronically Signed Out Angelica Pelaez MD [facility] [address], [place] [address] Technical component performed at [facility], [address], [place], [address]
== END 2016-12-23 19:42 | disposition home or self-care (01) ==
LOC: SED 17:18 → INTOOBSV 12-23 00:37 → MPC 12-23 00:37
PROVIDERS: ADMIT Internal Medicine; ATTEND Family Medicine
DX: N93.9 Abnormal uterine and vaginal bleeding, unspecified (principal); J45.909 Unspecified asthma, uncomplicated; D75.89 Other specified diseases of blood and blood-forming organs; R03.0 Elevated blood-pressure reading, without diagnosis of hypertension; R73.9 Hyperglycemia, unspecified; K21.9 Gastro-esophageal reflux disease without esophagitis; F32.9 Major depressive disorder, single episode, unspecified; F41.9 Anxiety disorder, unspecified; Z86.718 Personal history of other venous thrombosis and embolism; Z79.02 Long term (current) use of antithrombotics/antiplatelets; Z79.899 Other long term (current) drug therapy
CPT/HCPCS: 36415; 76830; 76856; 80048; 80053; 81000; 82607; 82746; 83036; 83605; 83690; 83735; 84443; 85014; 85018; 85025; 85610; 85651; 85730; 86140; 86850; 96361; 96374; 99285; G0378; J3010; J7030